=== PATIENT | male | born 1955 | race Hispanic/Latino ===

== ENCOUNTER 2017-07-29 07:36 | Day surgery (SDC) | payer MEDICARE ==
[2017-07-27 09:48] VITALS: BMI 36.8
[2017-07-29 08:23] VITALS: RESP 16
[2017-07-29] MEDS ORDERED: Propofol 10 mg/ml Inj (20 ML) ONE (09:02)
[2017-07-29] MEDS ORDERED: Sodium Chloride 0.9% 1,000 ML IV SCH (09:45)
[2017-07-29 10:12] VITALS: O2SAT 98
[2017-07-29 11:49] VITALS: BP 147/88; PULSE 61; TEMP 97.6
== END 2017-07-29 11:32 | disposition home or self-care (01) ==
LOC: ENDO 07:36
PROVIDERS: ATTEND Internal Medicine Gastroenterology
DX: Z12.11 Encounter for screening for malignant neoplasm of colon (principal); K64.1 Second degree hemorrhoids
CPT/HCPCS: 45378; J2704; J7030; J7040